=== PATIENT | female | born 1990 | race Caucasian/White ===

== ENCOUNTER 2019-03-03 09:26 | Emergency (ER) | payer OTHER ==
[~2019-03-03] VITALS: Ht 162.6 cm; Wt 104.5 kg
[2019-03-03] MEDS ORDERED: PERTUSS(ACELL),DIPH,TET VAC/PF 0.5 ML VIAL IM ONE (10:30)
[2019-03-03 13:23] VITALS: BP 123/79
== END 2019-03-03 13:36 | disposition home or self-care (01) ==
LOC: EMS 09:28
DX: S50.351A Superficial foreign body of right elbow, initial encounter (principal); F15.10 Other stimulant abuse, uncomplicated; W46.0XXA Contact with hypodermic needle, initial encounter; Y93.89 Activity, other specified; Y92.89 Other specified places as the place of occurrence of the external cause; Y99.8 Other external cause status
CPT/HCPCS: 90471; 90715; 93005